=== PATIENT | male | born 1975 | race Caucasian/White ===

== ENCOUNTER 2018-10-28 17:57 | Emergency (ER) | payer SELFPAY ==
[2018-10-28 18:13] LABS: ABSOLUTE BASOPHILS # (AUTO) 0.1 10^3/uL (0.0-0.2); ABSOLUTE LYMPHOCYTES (AUTO) 2.7 10^3/uL (0.5-4.7); ABSOLUTE MONOCYTES (AUTO) 0.5 10^3/uL (0.1-1.4); ABSOLUTE NEUT (AUTO) 5.5 10^3/uL (1.7-8.2); BASOPHILS % (AUTO) 0.9 % (0-2); EOSINOPHILS % (AUTO) 0.4 % (0-6); HEMATOCRIT 48.2 % (37.9-51.0); LYMPHOCYTES % (AUTO) 30.6 % (13-45); MEAN CORPUSCULAR HEMOGLOBIN 33.3 pg (27.0-33.4); MEAN CORPUSCULAR HGB CONC 35.3 g/dL (32.0-36.0); MEAN CORPUSCULAR VOLUME 94 fl (80-97); PLATELET COUNT 191 10^3/uL (150-450); RED BLOOD COUNT 5.12 10^6/uL (4.35-5.55); RED CELL DISTRIBUTION WIDTH 12.5 % (11.5-14.0); SEGMENTED NEUTROPHILS % (AUTO) 62.1 % (42-78); TOTAL CELLS COUNTED % (AUTO) 100 %; WHITE BLOOD COUNT 8.9 10^3/uL (4.0-10.5)
[2018-10-28 18:16] LABS: PROTHROMBIN TIME 12.7 SEC (11.4-15.4)
[2018-10-28 18:17] LABS: PARTIAL THROMBOPLASTIN TIME 26.1 SEC (23.5-35.8)
--- NOTE | 2018-10-28 18:31 | RADIOLOGY REPORT (SQ) ---
EXAM DESCRIPTION: CHEST SINGLE VIEW COMPLETED DATE/TIME: 10/28/2018 6:22 pm REASON FOR STUDY: BED 9 STROKE ALERT COMPARISON: None. EXAM PARAMETERS: NUMBER OF VIEWS: One view. TECHNIQUE: Single frontal radiographic view of the chest acquired. RADIATION DOSE: NA LIMITATIONS: None. FINDINGS: LUNGS AND PLEURA: No opacities, masses or pneumothorax. No pleural effusion. MEDIASTINUM AND HILAR STRUCTURES: No masses. Contour normal. HEART AND VASCULAR STRUCTURES: Heart normal in size. Normal vasculature. BONES: No acute findings. HARDWARE: None in the chest. OTHER: No other significant finding. IMPRESSION: NO ACUTE RADIOGRAPHIC FINDING IN THE CHEST. TECHNICAL DOCUMENTATION: JOB ID: [id number] [employer]- All Rights Reserved Reading location - IP/workstation name: [email or web address]
[2018-10-28] MEDS ORDERED: HALOPERIDOL LACTATE INJ 5 MG/1 ML VIAL IV ONE (18:35)
[2018-10-28] MEDS ORDERED: RINGERS SOLUTION,LACTATED 1,000 ML IV ONE (18:35)
[2018-10-28 18:36] LABS: ALANINE AMINOTRANSFERASE 25 U/L (21-72); ALBUMIN 4.7 g/dL (3.5-5.0); ALKALINE PHOSPHATASE 123 U/L (38-126); ANION GAP 10 (5-19); ASPARTATE AMINO TRANSFERASE 25 U/L (17-59); BILIRUBIN,DIRECT 0.2 mg/dL (0.0-0.4); BILIRUBIN,TOTAL 0.9 mg/dL (0.2-1.3); BLOOD UREA NITROGEN 23 mg/dL (7-20); CALCIUM 9.7 mg/dL (8.4-10.2); CARBON DIOXIDE 23 mmol/L (22-30); CHLORIDE 105 mmol/L (98-107); CREATINE KINASE 123 U/L (55-170); GLUCOSE 109 mg/dL (75-110); POTASSIUM 3.5 mmol/L (3.6-5.0); SODIUM 138.2 mmol/L (137-145); TOTAL PROTEIN 7.1 g/dL (6.3-8.2)
--- NOTE | 2018-10-28 18:38 | ER Document Report ---
ED General - General Chief Complaint: S/S of Possible Stroke Stated Complaint: POSSIBLE STROKE Time Seen by Provider: 10/28/18 18:27 Notes: Patient is a 42-year-old male with a past medical history of fibromyalgia, high blood pressure, presents after having an episode in which he began to feel like he was having difficulty "commanding his body to do the things that his brain wanted". The patient states that the symptoms started after he rolled his left ankle. He states that he began to feel somewhat lightheaded and dizzy. His significant other states that he seemed intermittent he be slurring his words prompting them to contact EMS and come to the emergency department. The patient denies a history of similar symptoms in the past although does state that he has recurrently rolled his left ankle. He does note a dull, throbbing, constant pain to his left ankle. He currently states that he feels "numb all over" but denies any localizing symptoms. Denies any headache, neck pain, nausea, chest pain or shortness of breath. He has not contacted his primary care doctor regarding today's concerns. Nothing is been noted to improve or worsen his symptoms. TRAVEL OUTSIDE OF THE [place] IN LAST 30 DAYS: No - Related Data Allergies/Adverse Reactions: acetaminophen [From Tylenol] Allergy (Severe, Verified 01/16/15 11:18) liver problems seafood Allergy (Severe, Uncoded 01/16/15 11:18) Shortness of Breath Past Medical History - General Information source: Patient - Social History Smoking Status: Current Every Day Smoker Frequency of alcohol use: None Drug Abuse: None Lives with: Spouse/Significant other Family History: Arthritis, CAD, CVA, DM, Hyperlipidemia, Hypertension, Malignancy - Past Medical History Cardiac Medical History: Denies: Hx Coronary Artery Disease, Hx Heart Attack, Hx Hypertension Pulmonary Medical History: Reports: Hx Asthma, Hx COPD Denies: Hx Bronchitis, Hx Pneumonia Neurological Medical History: Denies: Hx Cerebrovascular Accident, Hx Seizures Endocrine Medical History: Reports: Hx Diabetes Mellitus Type 2 Renal/ Medical History: Reports: Hx Kidney Stones GI Medical History: Reports: Hx Gastroesophageal Reflux Disease Musculoskeletal Medical History: Reports Hx Arthritis, Reports Hx Musculoskeletal Trauma Psychiatric Medical History: Reports: Hx Depression Traumatic Medical History: Reports: Hx Fractures Past Surgical History: Reports: Hx Adenoidectomy, Hx Orthopedic Surgery, Hx Tonsillectomy - Immunizations Immunizations up to date: Yes Hx Diphtheria, Pertussis, Tetanus Vaccination: Yes Review of Systems - Review of Systems Notes: Constitutional: Negative for fever. HENT: Negative for sore throat. Eyes: Negative for visual changes. Cardiovascular: Negative for chest pain. Positive for lightheadedness Respiratory: Negative for shortness of breath. Gastrointestinal: Negative for abdominal pain, vomiting or diarrhea. Genitourinary: Negative for dysuria. Musculoskeletal: Positive for left ankle pain Skin: Negative for rash. Neurological: Negative for headaches, positive for total body numbness without loss of sensation 10 point ROS negative except as marked above and in HPI. Physical Exam - Vital signs Vitals: Pulse Resp BP Pulse Ox 74 17 136/86 H 100 10/28/18 18:35 10/28/18 18:35 10/28/18 18:35 10/28/18 18:35 Interpretation: Normal Notes: PHYSICAL EXAMINATION: GENERAL: Appears to be intermittently slurring his words although this does extinguish over a period of time. In no apparent distress. HEAD: Atraumatic, normocephalic. EYES: Pupils equal round and reactive to light, extraocular movements intact, sclera anicteric, conjunctiva are normal. ENT: nares patent, oropharynx clear without exudates. Moist mucous membranes. NECK: Normal range of motion, supple without lymphadenopathy LUNGS: Breath sounds clear to auscultation bilaterally and equal. No wheezes rales or rhonchi. HEART: Regular rate and rhythm without murmurs ABDOMEN: Soft, nontender, normoactive bowel sounds. No guarding, no rebound. No masses appreciated. EXTREMITIES: Normal range of motion, no pitting or edema. No cyanosis. NEUROLOGICAL: Face symmetric. Tongue protrudes midline. Extraocular motions intact. Pupils are 2 mm and equally reactive. Normal speech, normal gait. 5 out of 5 strength in both the distal and proximal upper and lower extremities bilaterally. Sensation is grossly intact throughout. Finger to nose testing normal. Pronator drift normal. PSYCH: Anxious SKIN: Warm, Dry, normal turgor, no rashes or lesions noted. Course - Re-evaluation Re-evalutation: 10/28/18 18:36 Patient presents complaining of multiple vague symptoms including an episode of diffuse body numbness, feeling like his body was disconnected from his brain, and having difficulty speaking that occurred after he rolled his ankle. The patient states that he felt very weak and tired. When I initially examined the patient he has intermittent slurring of his words that does appear to be extremely variable and is distractible. Although the patient initially states that he is unable to move his body he actually has 5 out of 5 strength in the biceps and triceps bilaterally as well as both distally and proximally in the bilateral lower extremities. He has no facial asymmetry, tongue protrudes midline, no expressive or receptive aphasia. Over the course of approximately 10 minutes speaking with the patient, his and examined the patient he became much more interactive, no longer had any kind of speech disorder. The patient does have a history of somatization, fibromyalgia, clinical history is not consistent with an acute stroke for several reasons. First he reported bilateral symptoms, secondly he has no focal neurologic deficits on examination , and thirdly his speech pattern is not consistent with true dysarthria or aphasia. The patient's initial vitals are completely within normal limits. A CT of his head that was obtained prior to my assessment based on a stroke protocol that was placed by nursing staff is noted to be unremarkable. The chest x-ray is likewise clear. Labs are pending. Patient will be given IV fluids, low-dose of haloperidol for his symptoms and reassess. 10/28/18 19:45 Patient has had resolution of all symptoms. He is playing on his cell phone on reassessment. Repeat neurologic exam remains unremarkable the patient did roll his left ankle today. His left ankle is [place] criteria negative. I have offered an x-ray and he has declined stating that it no longer significantly hurts. At this time will discharge with return precautions and follow-up recommendations. Verbal discharge instructions given a the bedside and opportunity for questions given. Medication warnings reviewed. Patient is in agreement with this plan and has verbalized understanding of return precautions and the need for primary care follow-up in the next 24-72 hours. - Vital Signs Vital signs: Temp Pulse Resp BP Pulse Ox 74 18 122/84 100 10/28/18 18:35 10/28/18 19:02 18 19:02 10/28/18 19:02 - Laboratory Result Diagrams: 10/28/18 18:00 10/28/18 18:00 Laboratory results interpreted by me: 10/28/18 18:00 Potassium 3.5 L BUN 23 H - Diagnostic Test Radiology reviewed: Image reviewed, Reports reviewed Radiology results interpreted by me: 10/28/18 18:38 CT head: No acute intercranial bleed or mass Discharge - Discharge Clinical Impression: Near syncope, Body numbness, Somatization disorder Left ankle injury Qualifiers: Encounter type: initial encounter Qualified Code(s): S99.912A - Unspecified injury of left ankle, initial encounter Condition: Good Disposition: HOME, SELF-CARE Additional Instructions: You were seen today for an episode of becoming lightheaded after rolling her left ankle and then developing body numbness or and or difficulty speaking. Your workup today is unremarkable. Your symptoms are not consistent with a stroke. You have declined an x-ray of your left ankle. Please return if you develop recurrence or symptoms, have persistent vomiting, headache, focal weakness or numbness, confusion, or any other symptoms that are of concern to you. Please follow-up closely with your primary care physician within the next 24-48 hours.
--- NOTE | 2018-10-28 18:38 | RADIOLOGY REPORT (SQ) ---
EXAM DESCRIPTION: CT HEAD WITHOUT COMPLETED DATE/TIME: 10/28/2018 6:22 pm REASON FOR STUDY: BED 9 STROKE ALERT . Slurred speech. COMPARISON: None. TECHNIQUE: Axial images acquired through the brain without intravenous contrast. Images reviewed wi th bone, brain and subdural windows. Images stored on PACS. All CT scanners at this facility use dose modulation, iterative reconstruction, and/or weight based d osing when appropriate to reduce radiation dose to as low as reasonably achievable (ALARA). [facility]: Dose Right [facility]: CareDose [facility]: Dose Right [facility]: Teradose 4D [facility]: Smart Weave RADIATION DOSE: CT Rad equipment meets quality standard of care and radiation dose reduction techniq ues were employed. CTDIvol: 53.2 mGy. DLP: 991 mGy-cm. mGy. LIMITATIONS: None. FINDINGS: VENTRICLES: Normal size and contour. CEREBRUM: No mass effect. No hemorrhage. No midline shift. Normal tobar/white matter differentiatio n. No evidence for acute territorial infarction. CEREBELLUM: No mass effect. No hemorrhage. No alteration of density. No evidence for acute infarct ion. EXTRAAXIAL SPACES: No fluid collections. ORBITS AND GLOBE: Symmetrical contour of the globes. CALVARIUM: No depressed skull fracture. PARANASAL SINUSES: No air-fluid level. SOFT TISSUES: No hematoma. IMPRESSION: No acute intracranial hemorrhage or acute territorial infarct. If clinical concern pers ists for acute ischemia, further evaluation with MRI can be obtained. EVIDENCE OF ACUTE STROKE: NO. COMMENT: Pertinent findings on the imaging study reported as a CRITICAL RESULT to Dr. Gerber At18:2 9 hours on 10/28/2018. Category of Critical Result: Stroke Alert Quality ID # [id number]: Final reports with documentation of one or more dose reduction techniques (e.g., Au tomated exposure control, adjustment of the mA and/or kV according to patient size, use of iterative reconstruction technique) TECHNICAL DOCUMENTATION: JOB ID: [id number] [employer]- All Rights Reserved Reading location - IP/workstation name: [email or web address]
[2018-10-28 18:48] LABS: CREATINE KINASE MB 0.66 ng/mL (<4.55)
[2018-10-28 18:49] LABS: TROPONIN I < 0.012 ng/mL
[2018-10-28 19:56] VITALS: BP 122/84
--- NOTE | 2018-10-29 00:53 | EKG REPORT ---
SEVERITY:- BORDERLINE ECG - SINUS RHYTHM PROBABLE LEFT ATRIAL ABNORMALITY : Confirmed by: Ting Maharaj MD 29-Oct-2018 00:53:25
== END 2018-10-28 20:03 | disposition home or self-care (01) ==
LOC: ER 17:57
DX: S99.912A Unspecified injury of left ankle, initial encounter (principal); R55 Syncope and collapse; F45.9 Somatoform disorder, unspecified; R42 Dizziness and giddiness; R20.0 Anesthesia of skin; M25.572 Pain in left ankle and joints of left foot; X58.XXXA Exposure to other specified factors, initial encounter; F17.200 Nicotine dependence, unspecified, uncomplicated; I10 Essential (primary) hypertension; E11.9 Type 2 diabetes mellitus without complications; Z88.6 Allergy status to analgesic agent; Z87.442 Personal history of urinary calculi
CPT/HCPCS: 93005; 99285; 96361; 96374; 36415; 82553; 82962; 82550; 85025; 85610; 85730; 80053; 84484; 71045; 70450; 93010; J1630; J7120

== ENCOUNTER 2019-09-19 13:12 | Emergency (ER) | payer SELFPAY ==
--- NOTE | 2019-09-19 13:38 | ER Document Report ---
ED Medical Screen (RME) - General Chief Complaint: Dizziness Stated Complaint: DIZZINESS, CHEST PRESSURE Time Seen by Provider: 09/19/19 13:35 Mode of Arrival: Wheelchair Information source: Patient Notes: 43-year-old male presented to ED for complaint of dizziness lightheaded pressure in his chest pain in his upper back numbness to both arms and legs. He states that started this morning. He states it is continuing now. He states he did have some nausea this morning but is gone at this time. He states he did have some numbness in his jaw. He states it actually feels like it is getting better now that he is in the emergency room but it was not getting better at home. He denies any history of high blood pressure cholesterol or chest problems. He states he has had EKGs before but he has not had any cardiac cath or any heart surgeries. States she smokes between a pack and a pack and a half a day he states he does not drink alcohol but does not use any drugs. He states he does have low blood sugar. I have greeted and performed a rapid initial assessment of this patient. A comprehensive ED assessment and evaluation of the patient, analysis of test results and completion of medical decision making process will be conducted by an additional ED providers. TRAVEL OUTSIDE OF THE [place] IN LAST 30 DAYS: No - Related Data Allergies/Adverse Reactions: acetaminophen [From Tylenol] Allergy (Severe, Verified 01/16/15 11:18) liver problems seafood Allergy (Severe, Uncoded 01/16/15 11:18) Shortness of Breath Past Medical History - Past Medical History Cardiac Medical History: Denies: Hx Coronary Artery Disease, Hx Heart Attack, Hx Hypertension Pulmonary Medical History: Reports: Hx Asthma, Hx COPD Denies: Hx Bronchitis, Hx Pneumonia Neurological Medical History: Denies: Hx Cerebrovascular Accident, Hx Seizures Endocrine Medical History: Reports: Hx Diabetes Mellitus Type 2 Renal/ Medical History: Reports: Hx Kidney Stones. Denies: Hx Peritoneal Dialysis GI Medical History: Reports: Hx Gastroesophageal Reflux Disease Musculoskeltal Medical History: Reports Hx Arthritis, Reports Hx Musculoskeletal Trauma Psychiatric Medical History: Reports: Hx Depression Traumatic Medical History: Reports: Hx Fractures Past Surgical History: Reports: Hx Adenoidectomy, Hx Orthopedic Surgery, Hx Tonsillectomy - Immunizations Immunizations up to date: Yes Hx Diphtheria, Pertussis, Tetanus Vaccination: Yes Physical Exam - Vital signs Vitals: Temp Pulse Resp BP Pulse Ox 98.1 F 108 H 16 144/89 H 99 09/19/19 13:21 09/19/19 13:21 09/19/19 13:21 09/19/19 13:21 09/19/19 13:21 Course - Vital Signs Vital signs: Temp Pulse Resp BP Pulse Ox 98.1 F 108 H 16 144/89 H 99 09/19/19 13:21 09/19/19 13:21 09/19/19 13:21 09/19/19 13:21 09/19/19 13:21
[2019-09-19] MEDS ORDERED: NORMAL SALINE 1000 ML 1,000 ML IV ONE ×2 (13:41→19:38)
[2019-09-19 14:39] LABS: ABSOLUTE LYMPHOCYTES (AUTO) 1.3 10^3/uL (0.5-4.7); ABSOLUTE MONOCYTES (AUTO) 0.4 10^3/uL (0.1-1.4); ABSOLUTE NEUT (AUTO) 3.7 10^3/uL (1.7-8.2); BASOPHILS % (AUTO) 0.7 % (0-2); EOSINOPHILS % (AUTO) 0.8 % (0-6); HEMATOCRIT 48.9 % (37.9-51.0); HEMOGLOBIN 17.5 g/dL (13.5-17.0); LYMPHOCYTES % (AUTO) 23.3 % (13-45); MEAN CORPUSCULAR HGB CONC 35.7 g/dL (32.0-36.0); MEAN CORPUSCULAR VOLUME 95 fl (80-97); MONOCYTES % (AUTO) 7.4 % (3-13); PLATELET COUNT 146 10^3/uL (150-450); RED BLOOD COUNT 5.14 10^6/uL (4.35-5.55); RED CELL DISTRIBUTION WIDTH 12.6 % (11.5-14.0); SEGMENTED NEUTROPHILS % (AUTO) 67.8 % (42-78); TOTAL CELLS COUNTED % (AUTO) 100 %; WHITE BLOOD COUNT 5.5 10^3/uL (4.0-10.5)
--- NOTE | 2019-09-19 14:39 | RADIOLOGY REPORT (SQ) ---
EXAM DESCRIPTION: CHEST 2 VIEWS COMPLETED DATE/TIME: 09/19/2019 2:30 pm REASON FOR STUDY: chest pressure COMPARISON: 10/28/2018 EXAM PARAMETERS: NUMBER OF VIEWS: two views TECHNIQUE: Digital Frontal and Lateral radiographic views of the chest acquired. RADIATION DOSE: NA LIMITATIONS: none FINDINGS: LUNGS AND PLEURA: No opacities, masses or pneumothorax. No pleural effusion. MEDIASTINUM AND HILAR STRUCTURES: No masses or contour abnormalities. HEART AND VASCULAR STRUCTURES: Heart normal size. No evidence for failure. BONES: No acute findings. HARDWARE: None in the chest. OTHER: No other significant finding. IMPRESSION: NO ACUTE RADIOGRAPHIC FINDING IN THE CHEST. TECHNICAL DOCUMENTATION: JOB ID: [id number] [employer]- All Rights Reserved Reading location - IP/workstation name: [email or web address]
[2019-09-19 14:47] LABS: APPEARANCE,URINE CLEAR; BILIRUBIN,URINE NEGATIVE (NEGATIVE); COLOR,URINE STRAW; GLUCOSE, URINE NEGATIVE (NEGATIVE); KETONES,URINE NEGATIVE (NEGATIVE); PROTEIN,URINE NEGATIVE (NEGATIVE); URINE SPECIFIC GRAVITY 1.003; UROBILINOGEN,URINE NEGATIVE mg/dL (<2.0)
[2019-09-19 14:58] LABS: ALBUMIN 4.6 g/dL (3.5-5.0); ALKALINE PHOSPHATASE 82 U/L (38-126); ANION GAP 10 (5-19); ASPARTATE AMINO TRANSFERASE 24 U/L (17-59); BILIRUBIN,DIRECT 0.2 mg/dL (0.0-0.4); BILIRUBIN,TOTAL 0.4 mg/dL (0.2-1.3); BLOOD UREA NITROGEN 15 mg/dL (7-20); CALCIUM 9.5 mg/dL (8.4-10.2); CARBON DIOXIDE 25 mmol/L (22-30); CHLORIDE 107 mmol/L (98-107); GLUCOSE 88 mg/dL (75-110); POTASSIUM 3.8 mmol/L (3.6-5.0); TOTAL PROTEIN 7.2 g/dL (6.3-8.2)
--- NOTE | 2019-09-19 19:38 | ER Document Report ---
ED General - General Chief Complaint: Dizziness Stated Complaint: DIZZINESS, CHEST PRESSURE Time Seen by Provider: 09/19/19 13:35 Primary Care Provider: [facility] [Provider Group] - Follow up in 1 week Mode of Arrival: Wheelchair TRAVEL OUTSIDE OF THE [place] IN LAST 30 DAYS: No - HPI Notes: 43 year old male to the ED with C/O lightheadedness and chest pressure that started this morning. States he was getting up on a ladder when he felt acutely lightheaded like he may pass out. States that he got off the ladder and momentarily felt better. States that throughout the day he had has off and on lightheadedness. States that he began to have "chest pressure'. Admist to slight nausea and feeling numbness and tingling in his hands and legs. Denies associated SOB, Vomiting, diaphoresis. He does smoke. He does not have HTN, HLD, or DM. There is no family history of heart attacks. Denies fevers, chills, abd pain, diarrhea, headache. Does admit to some focal low back pain which he states has been ongoing for some time. Denies saddle paresthesias, radiculopathy, bladder/bowel incontinence, IVDA, neck pain. - Related Data Allergies/Adverse Reactions: acetaminophen [From Tylenol] Allergy (Severe, Verified 01/16/15 11:18) liver problems seafood Allergy (Severe, Uncoded 01/16/15 11:18) Shortness of Breath Past Medical History - General Information source: Patient - Social History Smoking Status: Current Every Day Smoker Frequency of alcohol use: Occasional Drug Abuse: None Lives with: Spouse/Significant other Family History: Arthritis, CAD, CVA, DM, Hyperlipidemia, Hypertension, Malignancy Patient has suicidal ideation: No Patient has homicidal ideation: No - Past Medical History Cardiac Medical History: Denies: Hx Coronary Artery Disease, Hx Heart Attack, Hx Hypertension Pulmonary Medical History: Reports: Hx Asthma, Hx COPD Denies: Hx Bronchitis, Hx Pneumonia Neurological Medical History: Denies: Hx Cerebrovascular Accident, Hx Seizures Endocrine Medical History: Reports: Hx Diabetes Mellitus Type 2 Renal/ Medical History: Reports: Hx Kidney Stones. Denies: Hx Peritoneal Dialysis GI Medical History: Reports: Hx Gastroesophageal Reflux Disease Musculoskeletal Medical History: Reports Hx Arthritis, Reports Hx Musculoskeletal Trauma Psychiatric Medical History: Reports: Hx Depression Traumatic Medical History: Reports: Hx Fractures Past Surgical History: Reports: Hx Adenoidectomy, Hx Orthopedic Surgery, Hx Tonsillectomy, Hx Urinary Tract Surgery - Immunizations Immunizations up to date: Yes Hx Diphtheria, Pertussis, Tetanus Vaccination: Yes Review of Systems - Review of Systems Constitutional: denies: Chills, Fever EENT: No symptoms reported Cardiovascular: See HPI, Lightheaded. denies: Palpitations, Heart racing, Orthopnea, Dyspnea, Syncope, Dizziness Respiratory: denies: Cough, Short of breath Gastrointestinal: Vomiting. denies: Abdominal pain, Diarrhea, Nausea Genitourinary: No symptoms reported Male Genitourinary: No symptoms reported Musculoskeletal: No symptoms reported Skin: No symptoms reported Hematologic/Lymphatic: No symptoms reported Neurological/Psychological: No symptoms reported -: Yes All other systems reviewed and negative Physical Exam - Vital signs Vitals: Temp Pulse Resp BP Pulse Ox 98.1 F 108 H 16 144/89 H 99 09/19/19 13:21 09/19/19 13:21 09/19/19 13:21 09/19/19 13:21 09/19/19 13:21 Interpretation: Normal - General General appearance: Appears well, Alert - HEENT Head: Normocephalic, Atraumatic Eyes: Normal Pupils: PERRL - Respiratory Respiratory status: No respiratory distress Chest status: Nontender Breath sounds: Normal Chest palpation: Normal - Cardiovascular Rhythm: Regular Heart sounds: Normal auscultation Murmur: No - Abdominal Inspection: Normal Distension: No distension Bowel sounds: Normal Tenderness: Nontender Organomegaly: No organomegaly - Back Back: Normal, Nontender - Extremities General upper extremity: Normal inspection, Nontender, Normal color, Normal ROM, Normal temperature General lower extremity: Normal inspection, Nontender, Normal color, Normal ROM, Normal temperature, Normal weight bearing. No: Manohar's sign - Neurological Neuro grossly intact: Yes Cognition: Normal Orientation: AAOx4 Collins Coma Scale Eye Opening: Spontaneous Collins Coma Scale Verbal: Oriented Mukesh Coma Scale Motor: Obeys Commands Mukesh Coma Scale Total: 15 Speech: Normal Motor strength normal: LUE, RUE, LLE, RLE Sensory: Normal - Psychological Associated symptoms: Normal affect, Normal mood - Skin Skin Temperature: Warm Skin Moisture: Dry Skin Color: Normal Course - Re-evaluation Re-evalutation: 09/19/19 09/19/19 14:10 19:23 Troponin I < 0.012 < 0.012 Impression: Lightheadedness/dizziness. Patient is not orthostatic. EKG and labs are very reassuring. He is feeling better since bag of fluids in the ER. Will have him follow up closely outpatient with PCP and have urged him to return immediately if his symptoms worsen. He agrees wtih the plan. - Vital Signs Vital signs: Temp Pulse Resp BP Pulse Ox 98.3 F 56 L 18 123/84 98 09/19/19 21:50 09/19/19 21:50 09/19/19 21:50 09/19/19 21:50 09/19/19 21:50 - Laboratory Result Diagrams: 09/19/19 14:10 09/19/19 14:10 Laboratory results interpreted by me: 09/19/19 14:10 Hgb 17.5 H MCH 34.0 H Plt Count 146 L - Diagnostic Test Radiology reviewed: Image reviewed, Reports reviewed - EKG Interpretation by Me EKG shows normal: Sinus rhythm Rate: Normal Rhythm: NSR When compared to previous EKG there are: Previous EKG unavailable Additional EKG results interpreted by me: no STEMI, no ST changes, no prior results, no LVH, normal axis. Discharge - Discharge Clinical Impression: Dizziness, Chest pressure Condition: Stable Disposition: HOME, SELF-CARE Instructions: Chest Pain of Unclear Cause ([facility]), Dizziness ([facility]) Additional Instructions: RETURN IMMEDIATELY IF WORSE. RETURN IF WORSE. FOLLOW UP WITH PRIMARY CARE. Referrals: [facility] [Provider Group] - Follow up in 1 week
[2019-09-19 21:53] VITALS: BP 123/84
--- NOTE | 2019-09-19 22:46 | EKG REPORT ---
SEVERITY:- NORMAL ECG - SINUS RHYTHM : Confirmed by: Graciela Angeles 19-Sep-2019 22:45:49
== END 2019-09-19 21:50 | disposition home or self-care (01) ==
LOC: ER 13:12
DX: R42 Dizziness and giddiness (principal); R07.89 Other chest pain; R20.0 Anesthesia of skin; R20.2 Paresthesia of skin; M54.5 Low back pain; J44.9 Chronic obstructive pulmonary disease, unspecified; E11.9 Type 2 diabetes mellitus without complications; F17.200 Nicotine dependence, unspecified, uncomplicated; Z88.8 Allergy status to other drugs, medicaments and biological substances; Z91.013 Allergy to seafood; Z82.49 Family history of ischemic heart disease and other diseases of the circulatory system; R11.10 Vomiting, unspecified
CPT/HCPCS: 93005; 99284; 96360; 96361; 36415; 82962; 83690; 85025; 80053; 81001; 84484; 71046; 93010; J7030